=== PATIENT | male | born 1925 | race Caucasian/White ===

== ENCOUNTER 2016-09-05 02:48 | Inpatient (IN) | payer OTHER, MEDICARE ==
[2016-09-05 03:34] LABS: ALANINE AMINOTRANSFERASE 39 U/L (21-72); ALBUMIN 3.5 g/dL (3.5-5.0); ALKALINE PHOSPHATASE 48 U/L (38-126); ANION GAP 8 (5-19); ASPARTATE AMINO TRANSFERASE 23 U/L (17-59); BILIRUBIN,TOTAL 1.4 mg/dL (0.2-1.3); BLOOD UREA NITROGEN 21 mg/dL (7-20); CALCIUM 9.8 mg/dL (8.4-10.2); CARBON DIOXIDE 29 mmol/L (22-30); CHLORIDE 100 mmol/L (98-107); CREATININE RESULT 1.11 mg/dL (0.52-1.25); GLUCOSE 155 mg/dL (75-110); POTASSIUM 4.7 mmol/L (3.6-5.0); SODIUM 137.2 mmol/L (137-145); TOTAL PROTEIN 5.7 g/dL (6.3-8.2)
--- NOTE | 2016-09-05 03:47 | ER Document Report ---
ED General - General Time seen by provider: 03:42 Mode of Arrival: Medic Information source: Relative - spouse, Emergency Med Personnel TRAVEL OUTSIDE OF THE [place] IN LAST 30 DAYS: No - HPI Onset: Other - See history of present illness Onset/Duration: Gradual Associated symptoms: Chills, Productive cough, Fever <URIEL TITUS - Last Filed: 09/05/16 05:33> <SUJEY SALMERON - Last Filed: 09/05/16 05:42> - General Chief Complaint: Fever Stated Complaint: FEVER,CHILLS Notes: Patient is an 89-year-old male presents emergency department complaining of general malaise, chills and fever. Patient's spouse states the patient still dresses himself, and drives about 1 time per week. Patient woke up on 09/04/16 and states that he didn't feel good and that he didn't sleep well the night prior. Patient's spouse noted that the patient has been coughing more throughout the day. Patient had a fever of 103.4 F and a pulse ox of 84% on room air. EMS gave Tylenol for fever prior to arrival and patient's pulse ox increased to 95% with oxygen. Patient has a history of hypertension, dementia, COPD and is on oxygen at home, and a history of aspiration pneumonia (2015). Patient has no known allergies. (URIEL TITUS) - Related Data Allergies/Adverse Reactions: No Known Allergies Allergy (Verified 07/19/14 03:52) Past Medical History - General Information source: Patient - Social History Smoking Status: Former Smoker Cigarette use (# per day): No Chew tobacco use (# tins/day): No Frequency of alcohol use: None Drug Abuse: None Family History: None - Past Medical History Cardiac Medical History: Reports: Hx Heart Attack, Hx Hypertension Pulmonary Medical History: Reports: Hx Asthma, Hx COPD Psychiatric Medical History: Reports: Hx Dementia, Hx Depression - Immunizations Hx Pneumococcal Vaccination: 06/06/14 <URIEL TITUS - Last Filed: 09/05/16 05:33> Review of Systems - Review of Systems Constitutional: See HPI, Chills, Fever EENT: No symptoms reported Cardiovascular: No symptoms reported Respiratory: See HPI, Cough Gastrointestinal: No symptoms reported Genitourinary: No symptoms reported Male Genitourinary: No symptoms reported Musculoskeletal: No symptoms reported Skin: No symptoms reported Hematologic/Lymphatic: No symptoms reported Neurological/Psychological: No symptoms reported -: Yes All other systems reviewed and negative <URIEL TITUS - Last Filed: 09/05/16 05:33> Physical Exam - Vital signs Interpretation: Normal - General General appearance: Appears well, Alert In distress: Mild - HEENT Head: Normocephalic, Atraumatic Eyes: Normal Pupils: PERRL Hearing loss: Left, Right Mucous membranes: Normal - Respiratory Respiratory status: No respiratory distress Chest status: Nontender Breath sounds: Normal Chest palpation: Normal - Cardiovascular Rhythm: Regular Heart sounds: Normal auscultation - Abdominal Inspection: Normal Distension: No distension Bowel sounds: Normal Tenderness: Nontender Organomegaly: No organomegaly - Back Back: Normal, Nontender - Extremities General upper extremity: Normal inspection, Normal ROM, Normal strength General lower extremity: Normal inspection, Normal ROM, Normal strength. No: Edema - Neurological Neuro grossly intact: Yes Cognition: Normal Orientation: AAOx4 Dawn Coma Scale Eye Opening: Spontaneous Dawn Coma Scale Verbal: Oriented [place] Coma Scale Motor: Obeys Commands Dawn Coma Scale Total: 15 Speech: Normal - Psychological Associated symptoms: Normal affect, Normal mood - Skin Skin Temperature: Warm Skin Moisture: Dry Skin Color: Normal <URIEL TITUS - Last Filed: 09/05/16 05:33> Course - Laboratory Result Diagrams: 09/05/16 03:13 09/05/16 03:01 <URIEL TITUS - Last Filed: 09/05/16 05:33> - Laboratory Result Diagrams: 09/05/16 03:13 09/05/16 03:01 - Diagnostic Test Radiology reviewed: Image reviewed, Reports reviewed - Mild basilar atelectasis and scarring - EKG Interpretation by Ct EKG shows normal: Sinus rhythm, [place], Intervals, ST-T Waves. abnormal: QRS Complexes - Atypical right bundle branch block Rate: Normal Rhythm: NSR [place]/QRS: IVCD <SUJEY SALMERON - Last Filed: 09/05/16 05:42> - Vital Signs Vital signs: Temp Pulse Resp BP Pulse Ox 99.6 F 103 H 19 144/68 H 91 L 09/05/16 03:07 09/05/16 03:07 09/05/16 04:23 09/05/16 04:23 09/05/16 04:23 (URIEL TITUS) (SUJEY SALMERON) - Laboratory Laboratory results interpreted by me: 09/05/16 09/05/16 09/05/16 03:01 03:13 03:13 RBC 3.99 L Hgb 13.2 L RDW 14.2 H Seg Neutrophils % 82.2 H Lymphocytes % 9.1 L VBG pH 7.43 H BUN 21 H Glucose 155 H Total Bilirubin 1.4 H Total Protein 5.7 L Urine Protein Urine Ketones Urine Ascorbic Acid 09/05/16 04:24 RBC Hgb RDW Seg Neutrophils % Lymphocytes % VBG pH BUN Glucose Total Bilirubin Total Protein Urine Protein 30 H Urine Ketones TRACE H Urine Ascorbic Acid 40 H (SUJEY SALMERON) Discharge <URIEL TITUS - Last Filed: 09/05/16 05:33> - Discharge Admitting Provider: Hospitalist Unit Admitted: Telemetry <SUJEY SALMERON - Last Filed: 09/05/16 05:42> - Discharge Clinical Impression: Influenza Pneumonia Qualifiers: Pneumonia type: due to unspecified organism Laterality: unspecified laterality Lung location: lower lobe of lung Qualified Code(s): J18.1 - Lobar pneumonia, unspecified organism Fever Qualifiers: Fever type: unspecified Qualified Code(s): R50.9 - Fever, unspecified Condition: Stable Disposition: ADMITTED OBSERVATION Scribe Attestation: 09/05/16 05:42 I personally performed the services described in the documentation, reviewed and edited the documentation which was dictated to the scribe in my presence, and it accurately records my words and actions. (SUJEY SALMERON) Scribe Documentation - Scribe Written by Scribe:: Uriel Titus (09/05/16 04:10) acting as scribe for :: Winnie <URIEL TITUS - Last Filed: 09/05/16 05:33>
[2016-09-05 03:52] LABS: ABSOLUTE LYMPHOCYTES (AUTO) 0.7 10^3/uL (0.5-4.7); ABSOLUTE MONOCYTES (AUTO) 0.6 10^3/uL (0.1-1.4); ABSOLUTE NEUT (AUTO) 6.3 10^3/uL (1.7-8.2); BASOPHILS % (AUTO) 0.2 % (0-2); EOSINOPHILS % (AUTO) 0.3 % (0-6); HEMATOCRIT 38.2 % (37.9-51.0); HEMOGLOBIN 13.2 g/dL (13.5-17.0); HGB HCT DIFFERENCE 1.4; LYMPHOCYTES % (AUTO) 9.1 % (13-45); MEAN CORPUSCULAR HEMOGLOBIN 33.1 pg (27.0-33.4); MEAN CORPUSCULAR HGB CONC 34.6 g/dL (32.0-36.0); MEAN CORPUSCULAR VOLUME 96 fl (80-97); MONOCYTES % (AUTO) 8.2 % (3-13); RED BLOOD COUNT 3.99 10^6/uL (4.35-5.55); RED CELL DISTRIBUTION WIDTH 14.2 % (11.5-14.0); SEGMENTED NEUTROPHILS % (AUTO) 82.2 % (42-78); WHITE BLOOD COUNT 7.7 10^3/uL (4.0-10.5)
[2016-09-05 03:55] LABS: ADD ON TESTING BLD IN LAB ACKNOWLEDGE
[2016-09-05 03:57] LABS: PROTHROMBIN TIME 13.8 SEC (11.4-15.4)
[2016-09-05 04:02] LABS: VENOUS BLOOD BASE EXCESS 2.3 mmol/L; VENOUS BLOOD HCO3 26.9 mmol/L (20-32); VENOUS BLOOD PCO2 41.8 mmHg (35-63); VENOUS BLOOD PH 7.43 (7.30-7.42)
[2016-09-05 04:26] LABS: CREATINE KINASE 61 U/L (55-170)
[2016-09-05 05:04] LABS: APPEARANCE,URINE SLIGHTLY-CLOUDY; BILIRUBIN,URINE NEGATIVE (NEGATIVE); GLUCOSE, URINE NEGATIVE (NEGATIVE); KETONES,URINE TRACE mg/dL (NEGATIVE); LEUKOCYTE ESTERASE,URINE NEGATIVE (NEGATIVE); NITRITE,URINE NEGATIVE (NEGATIVE); PROTEIN,URINE 30 mg/dL (NEGATIVE); UROBILINOGEN,URINE NEGATIVE mg/dL (<2.0)
[2016-09-05 05:43] LABS: CREATINE KINASE MB 0.69 ng/mL (<4.55); TROPONIN I 0.012 ng/mL
[2016-09-05] MEDS ORDERED: ALBUTEROL SULFATE 4 MG PO PRN (06:21)
[2016-09-05] MEDS ORDERED: IPRATROPIUM/ALBUTEROL 0.5-2.5 MG/3 ML AMPUL NEB PRN (06:22)
--- NOTE | 2016-09-05 07:37 | PDOC H&P ---
History of Present Illness Admission Date/PCP: 09/05/16 06:22 Patient complains of: Shortness breath cough and temperature 100.3 History of Present Illness: HEIDY SHEPPARD is a 89 year old male with history of COPD chronic bronchitis home O2 dependence, recurrent aspiration pneumonia, chronic pain anxiety, dementia and profound deafness. In his usual state of health until approximately 24 hours of shortness of breath cough and fever. Patient is a poor historian and unable to provide significant history, subsequently obtained by the medical record. In the emergency room his found to have fever of 100.2 and nonproductive cough and rhonchi on the left side he started on empiric antibiotics and referred to the hospitalist for admission. Past Medical History Cardiac Medical History: Reports: Myocardial Infarction, Hypertension Pulmonary Medical History: Reports: Asthma, Bronchitis, Chronic Obstructive Pulmonary Disease (COPD), Pneumonia Psychiatric Medical History: Reports: Dementia, Depression Social History Information Source: [facility] Records Lives with: Family Smoking Status: Former Smoker Frequency of Alcohol Use: None Hx Recreational Drug Use: No Drugs: None Hx Prescription Drug Abuse: No - Advance Directive Resuscitation Status: Do Not Resuscitate Family History Family History: COPD Parental Family History Reviewed: Yes Children Family History Reviewed: Yes Sibling(s) Family History Reviewed.: Yes Medication/Allergy Home Medications: Diazepam 2 mg PO QHS PRN 07/19/14 Hydrocodone Bit/Acetaminophen [Hydrocodon-Acetaminophen 5-325] 1 each PO PRN Metoprolol Succinate 25 mg PO DAILY 07/19/14 Tamsulosin HCl 0.4 mg PO DAILY 07/19/14 Tiotropium [place] [Spiriva Handihaler 18 mcg/dose (30 Dose)] 1 cap IH DAILY Aspirin [Aspirin 325 mg Tablet] 325 mg PO DAILY #90 tablet 07/27/14 Diltiazem HCl [Cardizem Cd 120 mg Capsule] 120 mg PO DAILY #90 cap.sr.24h Famotidine [Pepcid 20 mg Tablet] 20 mg PO Q12 #60 tablet 07/27/14 Guaifenesin [Mucinex Sr 600 mg Tablet.sa] 600 mg PO Q6 #20 tablet.sa 07/27/14 Levofloxacin [Levaquin 750 mg Tablet] 750 mg PO DAILY #10 tab 07/27/14 Albuterol Sulfate [Proventil Sr 4 mg Tablet] 4 mg PO BID PRN 01/05/17 Aspirin 81 mg PO DAILY 09/05/16 Calcium Carbonate/Vitamin D3 [Calcium 600 + Vit D Tablet] 1 tab PO DAILY Meclizine HCl 25 mg PO BID 09/05/16 Multivitamin [Multivitamins] 1 cap PO DAILY 09/05/16 Allergies/Adverse Reactions: No Known Allergies Allergy (Verified 07/19/14 03:52) Review of Systems ROS unobtainable: Due to mental status Physical Exam Vital Signs: Temp Pulse Resp BP Pulse Ox 99.1 F 103 H 26 H 132/61 H 95 09/05/16 07:13 09/05/16 03:07 09/05/16 07:09 09/05/16 07:09 09/05/16 07:09 Intake & Output 09/03/16 09/04/16 09/05/16 11:59 11:59 11:59 Weight 75.75 kg General appearance: PRESENT: cooperative, mild distress Head exam: PRESENT: atraumatic, normocephalic Eye exam: PRESENT: conjunctiva pink, EOMI, PERRLA. ABSENT: scleral icterus Ear exam: PRESENT: normal external ear exam Mouth exam: PRESENT: dry mucosa Neck exam: ABSENT: carotid bruit, JVD, lymphadenopathy, thyromegaly Respiratory exam: PRESENT: accessory muscle use, crackles, prolonged expiratory phas, rhonchi, symmetrical, tachypnea. ABSENT: chest wall tenderness, clear to auscultation francisco javier Cardiovascular exam: PRESENT: RRR. ABSENT: diastolic murmur, rubs, systolic murmur Pulses: PRESENT: normal dorsalis pedis pul Vascular exam: PRESENT: normal capillary refill GI/Abdominal exam: PRESENT: normal bowel sounds, soft. ABSENT: distended, guarding, mass, organolmegaly, rebound, tenderness Rectal exam: PRESENT: deferred Extremities exam: PRESENT: full ROM. ABSENT: calf tenderness, clubbing, pedal edema Neurological exam: PRESENT: alert, awake, oriented to person, oriented to place , CN II-XII grossly intact. ABSENT: oriented to time, oriented to situation, motor sensory deficit Psychiatric exam: PRESENT: appropriate affect, normal mood. ABSENT: homicidal ideation, suicidal ideation Skin exam: PRESENT: dry, intact, warm. ABSENT: cyanosis, rash Results Impressions: Chest X-Ray 09/05/16 03:01 IMPRESSION: MILD BASILAR ATELECTASIS/ SCARRING. Assessment & Plan - Diagnosis (1) Aspiration pneumonia Qualifiers: Aspiration pneumonia type: due to regurgitated food Laterality: bilateral Lung location: lower lobe of lung Qualified Code(s): J69.0 - Pneumonitis due to inhalation of food and vomit Is this a current diagnosis for this admission?: YesPlan: Empiric antibiotics thickened liquids reevaluation of labs (2) COPD exacerbation Is this a current diagnosis for this admission?: YesPlan: Incentive spirometry with albuterol and Atrovent - Time Time Spent: 30 to 50 Minutes
--- NOTE | 2016-09-05 08:02 | EKG REPORT ---
SEVERITY:- ABNORMAL ECG - SINUS RHYTHM IVCD, CONSIDER ATYPICAL RBBB : Confirmed by: Kwasi Mendiola 05-Sep-2016 08:01:55
[2016-09-05] MEDS ORDERED: (PENDING PHARMACY ID) (Multivitamin [Multivitamins] 1 CAP) PO SCH (10:00)
--- NOTE | 2016-09-05 12:11 | PDOC PROGRESS REPORT ---
Subjective Progress Note for:: 09/05/16 Subjective:: Patient is seen on morning rounds. He is sleeping soundly in bed. He is extremely hard of hearing and difficult to arouse because of his inability to hear. He continues to have congested cough. He denies any dyspnea or chest pain. He denies any headache or dizziness. He denies any pain. His only complaint is that he is tired. Physical Exam Vital Signs: Temp Pulse Resp BP Pulse Ox 99.1 F 101 H 20 154/60 H 98 09/05/16 09:08 09/05/16 09:08 09/05/16 09:08 09/05/16 09:08 09/05/16 09:08 Intake & Output 09/04/16 09/05/16 09/06/16 06:59 06:59 06:59 Weight 75.75 kg General appearance: PRESENT: no acute distress, well-developed, well-nourished Head exam: PRESENT: atraumatic, normocephalic Eye exam: PRESENT: conjunctiva pink, EOMI, PERRLA. ABSENT: scleral icterus Ear exam: PRESENT: normal external ear exam Mouth exam: PRESENT: moist, tongue midline Neck exam: ABSENT: carotid bruit, JVD, lymphadenopathy, thyromegaly Respiratory exam: PRESENT: rhonchi - bilaterally, symmetrical, unlabored, wheezes Cardiovascular exam: PRESENT: RRR. ABSENT: diastolic murmur, rubs, systolic murmur Pulses: PRESENT: normal dorsalis pedis pul Vascular exam: PRESENT: normal capillary refill GI/Abdominal exam: PRESENT: normal bowel sounds, soft. ABSENT: distended, guarding, mass, organolmegaly, rebound, tenderness Rectal exam: PRESENT: deferred Extremities exam: PRESENT: full ROM. ABSENT: calf tenderness, clubbing, pedal edema Neurological exam: PRESENT: alert, awake, oriented to person, oriented to place , oriented to time, oriented to situation, CN II-XII grossly intact. ABSENT: motor sensory deficit Psychiatric exam: PRESENT: appropriate affect, normal mood. ABSENT: homicidal ideation, suicidal ideation Skin exam: PRESENT: dry, intact, warm. ABSENT: cyanosis, rash Results Impressions: Chest X-Ray 09/05/16 03:01 IMPRESSION: MILD BASILAR ATELECTASIS/ SCARRING. Assessment & Plan - Diagnosis (1) Pneumonia Qualifiers: Pneumonia type: aspiration pneumonia Laterality: unspecified laterality Lung location: lower lobe of lung Qualified Code(s): J18.1 - Lobar pneumonia, unspecified organism Is this a current diagnosis for this admission?: YesPlan: Continue antibiotics and nebulizer treatments/ (2) BPH (benign prostatic hyperplasia) Qualifiers: Prostatic enlargement morphology: unspecified morphology Lower urinary tract symptom presence: presence of symptoms unspecified Qualified Code(s): N40.0 - Benign prostatic hyperplasia without lower urinary tract symptoms (3) Chronic hypoxemic respiratory failure Is this a current diagnosis for this admission?: YesPlan: Continue nebulizers, oxygen and antibiotics (4) Constipation Qualifiers: Constipation type: slow transit constipation Qualified Code(s): K59.01 - Slow transit constipation Is this a current diagnosis for this admission?: YesPlan: Cathartics prn - Time Time Spent with patient: 25-34 minutes Critical Time spent with patient: 15-24 minutes Medications reviewed and adjusted accordingly: Yes Anticipated discharge: Acute Rehab
[2016-09-05] MEDS: TIOTROPIUM BROMIDE DPI 5 CAP/KIT (18 MCG/CAP) IH SCH (18:51)
[2016-09-05] MEDS: ASPIRIN 81 MG TABLET, CHEWABLE PO SCH (18:51)
[2016-09-05] MEDS: TAMSULOSIN HCL 0.4 MG CAP.SR.24H PO SCH (18:51)
[2016-09-05] MEDS: GUAIFENESIN 600 MG TABLET.SA PO SCH ×2 (18:51→22:55)
[2016-09-05] MEDS: MULTIVITAMIN TABLET PO SCH (18:51)
[2016-09-05] MEDS: HEPARIN SOD (PORCINE) 5,000 UNIT/ML 1 ML SYRINGE SUBCUT SCH ×2 (18:54→22:55)
[2016-09-05] MEDS: LEVOFLOXACIN 750 MG/D5W RTU 150 ML IV SCH (19:01)
[2016-09-06] MEDS: HEPARIN SOD (PORCINE) 5,000 UNIT/ML 1 ML SYRINGE SUBCUT SCH ×3 (06:27→21:55)
[2016-09-06 06:37] LABS: ABSOLUTE LYMPHOCYTES (AUTO) 0.7 10^3/uL (0.5-4.7); ABSOLUTE MONOCYTES (AUTO) 0.7 10^3/uL (0.1-1.4); BASOPHILS % (AUTO) 0.3 % (0-2); EOSINOPHILS % (AUTO) 0.5 % (0-6); HEMOGLOBIN 13.2 g/dL (13.5-17.0); HGB HCT DIFFERENCE 1.6; LYMPHOCYTES % (AUTO) 9.6 % (13-45); MEAN CORPUSCULAR HEMOGLOBIN 33.2 pg (27.0-33.4); MEAN CORPUSCULAR HGB CONC 34.6 g/dL (32.0-36.0); MEAN CORPUSCULAR VOLUME 96 fl (80-97); RED BLOOD COUNT 3.97 10^6/uL (4.35-5.55); RED CELL DISTRIBUTION WIDTH 13.9 % (11.5-14.0); SEGMENTED NEUTROPHILS % (AUTO) 80.6 % (42-78); WHITE BLOOD COUNT 7.4 10^3/uL (4.0-10.5)
[2016-09-06 07:03] LABS: ANION GAP 7 (5-19); BLOOD UREA NITROGEN 22 mg/dL (7-20); CALCIUM 9.5 mg/dL (8.4-10.2); CARBON DIOXIDE 30 mmol/L (22-30); CHLORIDE 99 mmol/L (98-107); CREATININE RESULT 0.88 mg/dL (0.52-1.25); GLUCOSE 98 mg/dL (75-110); POTASSIUM 4.3 mmol/L (3.6-5.0); SODIUM 136.1 mmol/L (137-145)
[2016-09-06] MEDS: TAMSULOSIN HCL 0.4 MG CAP.SR.24H PO SCH (12:19)
[2016-09-06] MEDS: LEVOFLOXACIN 750 MG/D5W RTU 150 ML IV SCH (12:19)
[2016-09-06] MEDS: GUAIFENESIN 600 MG TABLET.SA PO SCH ×2 (12:20→21:56)
[2016-09-06] MEDS: TIOTROPIUM BROMIDE DPI 5 CAP/KIT (18 MCG/CAP) IH SCH (12:20)
[2016-09-06] MEDS: ASPIRIN 81 MG TABLET, CHEWABLE PO SCH (12:20)
[2016-09-06] MEDS: MULTIVITAMIN TABLET PO SCH (12:20)
--- NOTE | 2016-09-06 15:13 | PDOC PROGRESS REPORT ---
Subjective Progress Note for:: 09/06/16 Subjective:: Patient is seen on morning rounds. He is sleeping soundly in bed. He is extremely hard of hearing and difficult to arouse because of his inability to hear. He continues to have congested cough. He denies any dyspnea or chest pain. He denies any headache or dizziness. He denies any pain. His only complaint is that he is tired. Physical Exam Vital Signs: Temp Pulse Resp BP Pulse Ox 99.0 F 97 16 126/45 H 97 09/06/16 07:36 09/06/16 11:26 09/06/16 11:26 09/06/16 07:36 09/06/16 11:26 Intake & Output 09/05/16 09/06/16 09/07/16 06:59 06:59 06:59 Intake Total 740 650 Output Total 600 Balance 740 50 Weight 75.7 kg General appearance: PRESENT: no acute distress - extremely hard of hearing almost deaf, well-developed, well-nourished Head exam: PRESENT: atraumatic Eye exam: PRESENT: conjunctiva pink, EOMI, PERRLA. ABSENT: scleral icterus Ear exam: PRESENT: normal external ear exam Mouth exam: PRESENT: moist, tongue midline Neck exam: ABSENT: carotid bruit, JVD, lymphadenopathy, thyromegaly Respiratory exam: PRESENT: decreased breath sounds, rhonchi, symmetrical, unlabored, wheezes. ABSENT: rales Cardiovascular exam: PRESENT: RRR. ABSENT: diastolic murmur, rubs, systolic murmur Pulses: PRESENT: normal dorsalis pedis pul Vascular exam: PRESENT: normal capillary refill GI/Abdominal exam: PRESENT: normal bowel sounds, soft. ABSENT: distended, guarding, mass, organolmegaly, rebound, tenderness Rectal exam: PRESENT: deferred Extremities exam: PRESENT: full ROM. ABSENT: calf tenderness, clubbing, pedal edema Neurological exam: PRESENT: alert, awake, oriented to person, oriented to place , oriented to time, oriented to situation, CN II-XII grossly intact. ABSENT: motor sensory deficit Psychiatric exam: PRESENT: appropriate affect, normal mood. ABSENT: homicidal ideation, suicidal ideation Skin exam: PRESENT: dry, intact, warm. ABSENT: cyanosis, rash Results Laboratory Results: 09/06/16 06:10 09/06/16 06:10 09/06/16 09/06/16 06:10 06:10 WBC 7.4 RBC 3.97 L Hgb 13.2 L Hct 38.0 MCV 96 MCH 33.2 MCHC 34.6 RDW 13.9 Plt Count 154 Seg Neutrophils % 80.6 H Lymphocytes % 9.6 L Monocytes % 9.0 Eosinophils % 0.5 Basophils % 0.3 Absolute Neutrophils 6.0 Absolute Lymphocytes 0.7 Absolute Monocytes 0.7 Absolute Eosinophils 0.0 Absolute Basophils 0.0 Sodium 136.1 L Potassium 4.3 Chloride 99 Carbon Dioxide 30 Anion Gap 7 BUN 22 H Creatinine 0.88 Est GFR ( Amer) > 60 Est GFR (Non-Af Amer) > 60 Glucose 98 Calcium 9.5 Impressions: Chest X-Ray 09/05/16 03:01 IMPRESSION: MILD BASILAR ATELECTASIS/ SCARRING. Assessment & Plan - Diagnosis (1) Pneumonia Qualifiers: Pneumonia type: aspiration pneumonia Laterality: unspecified laterality Lung location: lower lobe of lung Qualified Code(s): J18.1 - Lobar pneumonia, unspecified organism Is this a current diagnosis for this admission?: YesPlan: Continue antibiotics and nebulizer treatments. Cultures pending (2) BPH (benign prostatic hyperplasia) Qualifiers: Prostatic enlargement morphology: unspecified morphology Lower urinary tract symptom presence: presence of symptoms unspecified Qualified Code(s): N40.0 - Benign prostatic hyperplasia without lower urinary tract symptoms Plan: Continue flomax (3) Chronic hypoxemic respiratory failure Is this a current diagnosis for this admission?: YesPlan: Continue nebulizers, oxygen and antibiotics (4) Constipation Qualifiers: Constipation type: slow transit constipation Qualified Code(s): K59.01 - Slow transit constipation Is this a current diagnosis for this admission?: YesPlan: Cathartics prn - Time Time Spent with patient: 25-34 minutes Critical Time spent with patient: 25-34 minutes Medications reviewed and adjusted accordingly: Yes Anticipated discharge: Acute Rehab
[2016-09-06] MEDS ORDERED: FLUTICASONE NASAL SPRAY 50 MCG/SPRY 120 SPRAY/16 GM NASL ONE (23:45)
[2016-09-06] MEDS ORDERED: DIAZEPAM 2 MG TABLET PO ONE (23:45)
[2016-09-07] MEDS ORDERED: FLUTICASONE NASAL SPRAY 50 MCG/SPRY 120 SPRAY/16 GM ONE (00:17)
[2016-09-07] MEDS: HEPARIN SOD (PORCINE) 5,000 UNIT/ML 1 ML SYRINGE SUBCUT SCH ×3 (06:14→22:08)
[2016-09-07] MEDS: LEVOFLOXACIN 750 MG/D5W RTU 150 ML IV SCH (11:05)
[2016-09-07] MEDS: ASPIRIN 81 MG TABLET, CHEWABLE PO SCH (11:06)
[2016-09-07] MEDS: MULTIVITAMIN TABLET PO SCH (11:06)
[2016-09-07] MEDS: GUAIFENESIN 600 MG TABLET.SA PO SCH ×2 (11:06→22:29)
[2016-09-07] MEDS: TAMSULOSIN HCL 0.4 MG CAP.SR.24H PO SCH (11:06)
[2016-09-07] MEDS: TIOTROPIUM BROMIDE DPI 5 CAP/KIT (18 MCG/CAP) IH SCH (11:07)
[2016-09-07] MEDS: FLUTICASONE NASAL SPRAY 50 MCG/SPRY 120 SPRAY/16 GM NASL SCH ×2 (11:07→22:29)
--- NOTE | 2016-09-07 12:30 | PDOC PROGRESS REPORT ---
Subjective Progress Note for:: 09/07/16 Subjective:: Patient is seen on morning rounds. He is sleeping soundly in bed. He is extremely hard of hearing and difficult to arouse because of his inability to hear. He continues to have congested cough. He denies any dyspnea or chest pain. He denies any headache or dizziness. He denies any pain. His only complaint is that he is tired. Physical Exam Vital Signs: Temp Pulse Resp BP Pulse Ox 98.1 F 117 H 21 H 145/65 H 94 09/07/16 11:32 09/07/16 11:32 09/07/16 11:32 09/07/16 11:32 09/07/16 11:32 Intake & Output 09/06/16 09/07/16 09/08/16 06:59 06:59 06:59 Intake Total 740 1371 Output Total 800 Balance 740 571 Weight 75.7 kg 75 kg General appearance: PRESENT: no acute distress, well-developed, well-nourished Head exam: PRESENT: atraumatic, normocephalic Eye exam: PRESENT: conjunctiva pink, EOMI, PERRLA. ABSENT: scleral icterus Ear exam: PRESENT: normal external ear exam Mouth exam: PRESENT: moist, tongue midline Neck exam: ABSENT: carotid bruit, JVD, lymphadenopathy, thyromegaly Respiratory exam: PRESENT: rhonchi, symmetrical, unlabored, wheezes - bilaterally Cardiovascular exam: PRESENT: RRR. ABSENT: diastolic murmur, rubs, systolic murmur Pulses: PRESENT: normal dorsalis pedis pul Vascular exam: PRESENT: normal capillary refill GI/Abdominal exam: PRESENT: normal bowel sounds, soft. ABSENT: distended, guarding, mass, organolmegaly, rebound, tenderness Rectal exam: PRESENT: deferred Extremities exam: PRESENT: full ROM. ABSENT: calf tenderness, clubbing, pedal edema Neurological exam: PRESENT: alert, awake, oriented to person, oriented to place , oriented to time, oriented to situation, CN II-XII grossly intact. ABSENT: motor sensory deficit Skin exam: PRESENT: dry, intact, warm. ABSENT: cyanosis, rash Results Laboratory Results: 09/06/16 06:10 09/06/16 06:10 Impressions: Chest X-Ray 09/05/16 03:01 IMPRESSION: MILD BASILAR ATELECTASIS/ SCARRING. Assessment & Plan - Diagnosis (1) Pneumonia Qualifiers: Pneumonia type: aspiration pneumonia Laterality: unspecified laterality Lung location: lower lobe of lung Qualified Code(s): J18.1 - Lobar pneumonia, unspecified organism Is this a current diagnosis for this admission?: YesPlan: Continue antibiotics and nebulizer treatments. Cultures pending (2) BPH (benign prostatic hyperplasia) Qualifiers: Prostatic enlargement morphology: unspecified morphology Lower urinary tract symptom presence: presence of symptoms unspecified Qualified Code(s): N40.0 - Benign prostatic hyperplasia without lower urinary tract symptoms Plan: Continue flomax (3) Chronic hypoxemic respiratory failure Is this a current diagnosis for this admission?: YesPlan: Continue nebulizers, oxygen and antibiotics (4) Constipation Qualifiers: Constipation type: slow transit constipation Qualified Code(s): K59.01 - Slow transit constipation Is this a current diagnosis for this admission?: YesPlan: Cathartics prn (5) Dysphagia Qualifiers: Dysphagia type: pharyngeal phase Qualified Code(s): R13.13 - Dysphagia , pharyngeal phase Is this a current diagnosis for this admission?: YesPlan: Possible aspiration pneumonia. Patient refused speech therapy consult - Time Time Spent with patient: 25-34 minutes Critical Time spent with patient: 15-24 minutes Medications reviewed and adjusted accordingly: Yes Anticipated discharge: Acute Rehab
[2016-09-07] MEDS: ACETAMINOPHEN 325 MG TABLET PO PRN ×2 (16:55→23:58)
[2016-09-07] MEDS: DIAZEPAM 2 MG TABLET PO SCH (22:09)
[2016-09-08] MEDS: HEPARIN SOD (PORCINE) 5,000 UNIT/ML 1 ML SYRINGE SUBCUT SCH ×3 (05:57→22:50)
[2016-09-08] MEDS ORDERED: HYDROCODONE/ACETAMINOPHEN 5-325 MG TABLET PO PRN (10:15)
[2016-09-08] MEDS: LEVOFLOXACIN 750 MG/D5W RTU 150 ML IV SCH (11:08)
[2016-09-08] MEDS: TAMSULOSIN HCL 0.4 MG CAP.SR.24H PO SCH (11:09)
[2016-09-08] MEDS: MULTIVITAMIN TABLET PO SCH (11:09)
[2016-09-08] MEDS: ASPIRIN 81 MG TABLET, CHEWABLE PO SCH (11:09)
[2016-09-08] MEDS: GUAIFENESIN 600 MG TABLET.SA PO SCH ×2 (11:09→22:51)
[2016-09-08] MEDS: FLUTICASONE NASAL SPRAY 50 MCG/SPRY 120 SPRAY/16 GM NASL SCH ×2 (11:10→22:51)
[2016-09-08] MEDS: TIOTROPIUM BROMIDE DPI 5 CAP/KIT (18 MCG/CAP) IH SCH (11:10)
[2016-09-08] MEDS ORDERED: CAPSAICIN 0.025% CREAM 60 GM TP PRN (14:55)
[2016-09-08] MEDS: BENZONATATE 100 MG CAPSULE PO SCH ×2 (15:10→22:50)
[2016-09-08] MEDS: ACYCLOVIR 5% OINTMENT 15 GM TP SCH ×3 (15:11→22:50)
--- NOTE | 2016-09-08 16:50 | PDOC PROGRESS REPORT ---
Subjective Progress Note for:: 09/08/16 Subjective:: Patient is seen on morning rounds. He is awake and alert and resting in bed. He is extremely hard of hearing. We communicate through his note pad in writing. He knows he has dementia and it takes him a long time to gather his thoughts. He wants to be able to take his own medications as he does at home and have his give it to him. He continues to have congested cough. He denies any dyspnea or chest pain. He denies any headache or dizziness. He denies any pain. His only complaint is that he is tired. Physical Exam Vital Signs: Temp Pulse Resp BP Pulse Ox 98.3 F 91 20 114/55 L 99 09/08/16 15:23 09/08/16 15:23 09/08/16 15:23 09/08/16 15:23 09/08/16 15:23 Intake & Output 09/07/16 09/08/16 09/09/16 06:59 06:59 06:59 Intake Total 1371 1045 1200 Output Total 800 1725 400 Balance 571 -680 800 Weight 75 kg 75 kg General appearance: PRESENT: no acute distress, thin, well-developed, well- nourished Head exam: PRESENT: atraumatic, normocephalic Eye exam: PRESENT: conjunctiva pink, EOMI, PERRLA. ABSENT: scleral icterus Ear exam: PRESENT: normal external ear exam Mouth exam: PRESENT: moist, tongue midline Neck exam: ABSENT: carotid bruit, JVD, lymphadenopathy, thyromegaly Respiratory exam: PRESENT: decreased breath sounds, rhonchi, symmetrical, wheezes Cardiovascular exam: PRESENT: RRR. ABSENT: diastolic murmur, rubs, systolic murmur Pulses: PRESENT: normal dorsalis pedis pul Vascular exam: PRESENT: normal capillary refill GI/Abdominal exam: PRESENT: normal bowel sounds, soft. ABSENT: distended, guarding, mass, organolmegaly, rebound, tenderness Rectal exam: PRESENT: deferred Extremities exam: PRESENT: full ROM. ABSENT: calf tenderness, clubbing, pedal edema Neurological exam: PRESENT: alert, awake, oriented to person, oriented to place , oriented to time, oriented to situation, CN II-XII grossly intact. ABSENT: motor sensory deficit Psychiatric exam: PRESENT: appropriate affect, normal mood. ABSENT: homicidal ideation, suicidal ideation Skin exam: PRESENT: dry, intact, warm. ABSENT: cyanosis, rash Results Laboratory Results: 09/06/16 06:10 09/06/16 06:10 Impressions: Chest X-Ray 09/05/16 03:01 IMPRESSION: MILD BASILAR ATELECTASIS/ SCARRING. Assessment & Plan - Diagnosis (1) Pneumonia Qualifiers: Pneumonia type: aspiration pneumonia Laterality: unspecified laterality Lung location: lower lobe of lung Qualified Code(s): J18.1 - Lobar pneumonia, unspecified organism Is this a current diagnosis for this admission?: YesPlan: Continue antibiotics and nebulizer treatments. Cultures pending (2) BPH (benign prostatic hyperplasia) Qualifiers: Prostatic enlargement morphology: unspecified morphology Lower urinary tract symptom presence: presence of symptoms unspecified Qualified Code(s): N40.0 - Benign prostatic hyperplasia without lower urinary tract symptoms Plan: Continue flomax (3) Chronic hypoxemic respiratory failure Is this a current diagnosis for this admission?: YesPlan: Continue nebulizers, oxygen and antibiotics (4) Constipation Qualifiers: Constipation type: slow transit constipation Qualified Code(s): K59.01 - Slow transit constipation Is this a current diagnosis for this admission?: YesPlan: Cathartics prn (5) Dysphagia Qualifiers: Dysphagia type: pharyngeal phase Qualified Code(s): R13.13 - Dysphagia , pharyngeal phase Is this a current diagnosis for this admission?: YesPlan: Possible aspiration pneumonia. Patient refused speech therapy consult - Time Time Spent with patient: 25-34 minutes Critical Time spent with patient: 15-24 minutes Medications reviewed and adjusted accordingly: Yes Anticipated discharge: Acute Rehab
[2016-09-08] MEDS: MECLIZINE HCL 25 MG TABLET PO SCH (18:03)
[2016-09-08] MEDS ORDERED: DIAZEPAM 2 MG TABLET PO SCH (22:00)
[2016-09-08] MEDS: DIAZEPAM 2 MG TABLET PO SCH (22:50)
[2016-09-09] MEDS: HEPARIN SOD (PORCINE) 5,000 UNIT/ML 1 ML SYRINGE SUBCUT SCH ×3 (06:25→21:11)
[2016-09-09] MEDS: BENZONATATE 100 MG CAPSULE PO SCH ×3 (06:25→21:10)
[2016-09-09] MEDS: HYDROCODONE/ACETAMINOPHEN 5-325 MG TABLET PO PRN ×3 (06:31→20:31)
[2016-09-09] MEDS: DIAZEPAM 2 MG TABLET PO PRN ×2 (06:31→20:31)
[2016-09-09] MEDS ORDERED: LEVOFLOXACIN 750 MG TABLET PO ONE (11:00)
[2016-09-09] MEDS: MULTIVITAMIN TABLET PO SCH (11:18)
[2016-09-09] MEDS: GUAIFENESIN 600 MG TABLET.SA PO SCH ×2 (11:21→21:01)
[2016-09-09] MEDS: ASPIRIN 81 MG TABLET, CHEWABLE PO SCH (11:22)
[2016-09-09] MEDS: MECLIZINE HCL 25 MG TABLET PO SCH ×2 (11:23→18:36)
[2016-09-09] MEDS: ACYCLOVIR 5% OINTMENT 15 GM TP SCH ×4 (11:24→21:01)
[2016-09-09] MEDS: TIOTROPIUM BROMIDE DPI 5 CAP/KIT (18 MCG/CAP) IH SCH (11:25)
[2016-09-09] MEDS: TAMSULOSIN HCL 0.4 MG CAP.SR.24H PO SCH (11:46)
[2016-09-09] MEDS: FLUTICASONE NASAL SPRAY 50 MCG/SPRY 120 SPRAY/16 GM NASL SCH ×2 (11:47→21:01)
--- NOTE | 2016-09-09 15:10 | PDOC PROGRESS REPORT ---
Subjective Progress Note for:: 09/09/16 Subjective:: Patient is seen on morning rounds. He is awake and alert and resting in bed. He is extremely hard of hearing. We communicate through his note pad in writing. He knows he has dementia and it takes him a long time to gather his thoughts. He wants to be able to take his own medications as he does at home and have his give it to him. He continues to have congested cough. He denies any dyspnea or chest pain. He denies any headache or dizziness. He denies any pain. His only complaint is that he is tired, but he did sleep much better overnight. Physical Exam Vital Signs: Temp Pulse Resp BP Pulse Ox 98.1 F 95 20 115/54 L 99 09/09/16 11:06 09/09/16 11:06 09/09/16 11:06 09/09/16 11:06 09/09/16 11:06 Intake & Output 09/08/16 09/09/16 09/10/16 06:59 06:59 06:59 Intake Total 1045 1560 Output Total 1725 1000 Balance -680 560 Weight 75 kg General appearance: PRESENT: no acute distress, well-developed, well-nourished Head exam: PRESENT: atraumatic, normocephalic Eye exam: PRESENT: conjunctiva pink, EOMI, PERRLA. ABSENT: scleral icterus Ear exam: PRESENT: normal external ear exam Mouth exam: PRESENT: moist, tongue midline Neck exam: ABSENT: carotid bruit, JVD, lymphadenopathy, thyromegaly Respiratory exam: PRESENT: clear to auscultation francisco javier. ABSENT: rales, rhonchi, wheezes Cardiovascular exam: PRESENT: RRR. ABSENT: diastolic murmur, rubs, systolic murmur Pulses: PRESENT: normal dorsalis pedis pul Vascular exam: PRESENT: normal capillary refill GI/Abdominal exam: PRESENT: normal bowel sounds, soft. ABSENT: distended, guarding, mass, organolmegaly, rebound, tenderness Rectal exam: PRESENT: deferred Extremities exam: PRESENT: full ROM. ABSENT: calf tenderness, clubbing, pedal edema Musculoskeletal exam: PRESENT: ambulatory Neurological exam: PRESENT: alert, altered, awake, oriented to person, oriented to place - most of the time, he is aware of where he is Psychiatric exam: PRESENT: appropriate affect, normal mood. ABSENT: homicidal ideation, suicidal ideation Skin exam: PRESENT: dry, intact, warm, other - multiple echymotic areas of arms from blood draws. ABSENT: cyanosis, rash Results Laboratory Results: 09/06/16 06:10 09/06/16 06:10 Impressions: Chest X-Ray 09/05/16 03:01 IMPRESSION: MILD BASILAR ATELECTASIS/ SCARRING. Assessment & Plan - Diagnosis (1) Pneumonia Qualifiers: Pneumonia type: aspiration pneumonia Laterality: unspecified laterality Lung location: lower lobe of lung Qualified Code(s): J18.1 - Lobar pneumonia, unspecified organism Is this a current diagnosis for this admission?: YesPlan: Continue antibiotics and nebulizer treatments. He is back to baseline and ready for discharge to rehab Patient wants to go home but is unable to care for him 24hrs a day. He does wear oxygen at 2l/min n/c continously at home. (2) BPH (benign prostatic hyperplasia) Qualifiers: Prostatic enlargement morphology: unspecified morphology Lower urinary tract symptom presence: presence of symptoms unspecified Qualified Code(s): N40.0 - Benign prostatic hyperplasia without lower urinary tract symptoms Plan: Continue flomax (3) Chronic hypoxemic respiratory failure Is this a current diagnosis for this admission?: YesPlan: Continue nebulizers, oxygen and antibiotics (4) Constipation Qualifiers: Constipation type: slow transit constipation Qualified Code(s): K59.01 - Slow transit constipation Is this a current diagnosis for this admission?: YesPlan: Cathartics prn (5) Dysphagia Qualifiers: Dysphagia type: pharyngeal phase Qualified Code(s): R13.13 - Dysphagia , pharyngeal phase Is this a current diagnosis for this admission?: YesPlan: Patient has had previous admissions for aspiration pneumonia. He has been evaluated by speech therapy and recommended to be on chopped meats and thickened liquids - Time Time Spent with patient: 35 or more minutes Critical Time spent with patient: 25-34 minutes Medications reviewed and adjusted accordingly: Yes Anticipated discharge: Acute Rehab Within: when bed available
[2016-09-09] MEDS: DIAZEPAM 2 MG TABLET PO SCH (21:14)
[2016-09-10] MEDS: BENZONATATE 100 MG CAPSULE PO SCH ×3 (06:32→21:33)
[2016-09-10] MEDS: HEPARIN SOD (PORCINE) 5,000 UNIT/ML 1 ML SYRINGE SUBCUT SCH ×3 (06:33→21:36)
[2016-09-10] MEDS: DIAZEPAM 2 MG TABLET PO PRN (08:23)
[2016-09-10] MEDS: HYDROCODONE/ACETAMINOPHEN 5-325 MG TABLET PO PRN ×4 (08:23→21:33)
[2016-09-10] MEDS: GUAIFENESIN 600 MG TABLET.SA PO SCH ×3 (10:07→23:43)
[2016-09-10] MEDS: ASPIRIN 81 MG TABLET, CHEWABLE PO SCH (10:07)
[2016-09-10] MEDS: LEVOFLOXACIN 750 MG TABLET PO SCH (10:09)
[2016-09-10] MEDS: MULTIVITAMIN TABLET PO SCH (10:09)
[2016-09-10] MEDS: TIOTROPIUM BROMIDE DPI 5 CAP/KIT (18 MCG/CAP) IH SCH (10:09)
[2016-09-10] MEDS: TAMSULOSIN HCL 0.4 MG CAP.SR.24H PO SCH (10:09)
[2016-09-10] MEDS: MECLIZINE HCL 25 MG TABLET PO SCH ×2 (10:09→18:10)
[2016-09-10] MEDS: FLUTICASONE NASAL SPRAY 50 MCG/SPRY 120 SPRAY/16 GM NASL SCH ×3 (10:09→23:43)
[2016-09-10] MEDS: ACYCLOVIR 5% OINTMENT 15 GM TP SCH ×5 (10:09→23:44)
--- NOTE | 2016-09-10 15:35 | PDOC PROGRESS REPORT ---
Subjective Progress Note for:: 09/10/16 Subjective:: The patient was seen earlier today on rounds. The patient is very hard of hearing which can make communication difficult. I communicated with the patient with a pad and pen. The patient denies any nausea, vomiting, diarrhea, shortness of breath, dizziness, chest pain, heart palpitations, fevers, or chills. The patient is obsessive-compulsive and is concerned about the timing of his medications. I once again went over this in detail with the patient and attempt to ease his anxiety around his medication administration windows. I spoke with the patient's regarding this and she also attempted to comfort the patient. The patient has remained afebrile. Blood pressures have been in a good range. When prompted the patient voices no other concerns at this time. Review of systems: The rest of the review of systems is negative. Physical Exam Vital Signs: Temp Pulse Resp BP Pulse Ox 97.8 F 90 16 125/61 98 09/10/16 11:37 09/10/16 11:37 09/10/16 11:37 09/10/16 11:37 09/10/16 11:37 Intake & Output 09/08/16 09/09/16 09/10/16 23:59 23:59 23:59 Intake Total 1530 2113 0 Output Total 750 1020 0 Balance 780 1093 0 Weight 75 kg 76.3 kg General appearance: PRESENT: no acute distress, cooperative, hard of hearing, well-developed, well-nourished Head exam: PRESENT: atraumatic, normocephalic Eye exam: PRESENT: conjunctiva pink, EOMI, PERRLA. ABSENT: scleral icterus Ear exam: PRESENT: normal external ear exam Mouth exam: PRESENT: moist, tongue midline Neck exam: ABSENT: carotid bruit, JVD, lymphadenopathy, thyromegaly Respiratory exam: PRESENT: clear to auscultation francisco javier. ABSENT: rales, rhonchi, wheezes Cardiovascular exam: PRESENT: RRR. ABSENT: diastolic murmur, rubs, systolic murmur Pulses: PRESENT: normal dorsalis pedis pul Vascular exam: PRESENT: normal capillary refill GI/Abdominal exam: PRESENT: normal bowel sounds, soft. ABSENT: distended, guarding, mass, organolmegaly, rebound, tenderness Rectal exam: PRESENT: deferred Extremities exam: PRESENT: full ROM. ABSENT: calf tenderness, clubbing, pedal edema Neurological exam: PRESENT: alert, awake, oriented to person, oriented to place , oriented to time, oriented to situation, CN II-XII grossly intact. ABSENT: motor sensory deficit Psychiatric exam: PRESENT: appropriate affect, normal mood. ABSENT: homicidal ideation, suicidal ideation Skin exam: PRESENT: dry, intact, warm. ABSENT: cyanosis, rash Results Laboratory Results: 09/06/16 06:10 09/06/16 06:10 Impressions: Chest X-Ray 09/05/16 03:01 IMPRESSION: MILD BASILAR ATELECTASIS/ SCARRING. Assessment & Plan - Diagnosis (1) Aspiration pneumonia Qualifiers: Aspiration pneumonia type: due to regurgitated food Laterality: bilateral Lung location: lower lobe of lung Qualified Code(s): J69.0 - Pneumonitis due to inhalation of food and vomit Is this a current diagnosis for this admission?: Yes (2) SIRS (systemic inflammatory response syndrome) Is this a current diagnosis for this admission?: Yes (3) Acute encephalopathy Is this a current diagnosis for this admission?: Yes (4) Atrial fibrillation Qualifiers: Atrial fibrillation type: paroxysmal Qualified Code(s): I48.0 - Paroxysmal atrial fibrillation Is this a current diagnosis for this admission?: Yes (5) BPH (benign prostatic hyperplasia) Qualifiers: Prostatic enlargement morphology: unspecified morphology Lower urinary tract symptom presence: presence of symptoms unspecified Qualified Code(s): N40.0 - Benign prostatic hyperplasia without lower urinary tract symptoms (6) COPD exacerbation Is this a current diagnosis for this admission?: Yes (7) Chronic hypoxemic respiratory failure Is this a current diagnosis for this admission?: Yes (8) Chronic obstructive lung disease Qualifiers: COPD type: COPD with acute lower respiratory infection Qualified Code(s ): J44.0 - Chronic obstructive pulmonary disease with acute lower respiratory infection Is this a current diagnosis for this admission?: Yes (9) Constipation Qualifiers: Constipation type: slow transit constipation Qualified Code(s): K59.01 - Slow transit constipation Is this a current diagnosis for this admission?: Yes (10) Deaf Qualifiers: Laterality: bilateral Qualified Code(s): H91.93 - Unspecified hearing loss, bilateral Is this a current diagnosis for this admission?: Yes (11) Dysphagia Qualifiers: Dysphagia type: pharyngeal phase Qualified Code(s): R13.13 - Dysphagia , pharyngeal phase Is this a current diagnosis for this admission?: Yes (12) Opiate dependence Qualifiers: Substance use status: uncomplicated Qualified Code(s): F11.20 - Opioid dependence, uncomplicated Is this a current diagnosis for this admission?: Yes - Time Time Spent with patient: 25-34 minutes Medications reviewed and adjusted accordingly: Yes Anticipated discharge: SNF Within: within 24 hours, when bed available
[2016-09-10] MEDS: DIAZEPAM 2 MG TABLET PO SCH (21:33)
[2016-09-11] MEDS: HYDROCODONE/ACETAMINOPHEN 5-325 MG TABLET PO PRN ×3 (03:42→17:57)
[2016-09-11] MEDS: BENZONATATE 100 MG CAPSULE PO SCH ×2 (06:55→14:13)
[2016-09-11] MEDS: HEPARIN SOD (PORCINE) 5,000 UNIT/ML 1 ML SYRINGE SUBCUT SCH ×2 (06:55→14:13)
--- NOTE | 2016-09-11 09:07 | PDOC TRANSFER SUMMARY ---
General - Admit/Disc Date/PCP Admission Date/Primary Care Provider: 09/05/16 06:22 Dr. Shetty, [place] Discharge Date: 09/11/16 - Discharge Diagnosis (1) Aspiration pneumonia Is this a current diagnosis for this admission?: Yes (2) SIRS (systemic inflammatory response syndrome) Is this a current diagnosis for this admission?: Yes (3) COPD exacerbation Is this a current diagnosis for this admission?: Yes (4) Acute on chronic respiratory failure with hypoxemia Is this a current diagnosis for this admission?: Yes (5) Acute encephalopathy Is this a current diagnosis for this admission?: Yes (6) Atrial fibrillation Is this a current diagnosis for this admission?: Yes (7) BPH (benign prostatic hyperplasia) Is this a current diagnosis for this admission?: Yes (8) Constipation Is this a current diagnosis for this admission?: Yes (9) Deaf Is this a current diagnosis for this admission?: Yes (10) Dysphagia Is this a current diagnosis for this admission?: Yes (11) Opiate dependence Is this a current diagnosis for this admission?: Yes - Additional Information Resuscitation Status: Do Not Resuscitate Discharge Diet: Regular - Chopped meats and thickened liquids Discharge Activity: Activity As Tolerated Home Medications: Diazepam 2 mg PO QHS PRN 07/19/14 Metoprolol Succinate 25 mg PO DAILY 07/19/14 Tiotropium Oracle [Spiriva Handihaler 18 mcg/dose (30 Dose)] 1 cap IH DAILY Aspirin [Aspirin 325 mg Tablet] 325 mg PO DAILY #90 tablet 07/27/14 Diltiazem HCl [Cardizem Cd 120 mg Capsule] 120 mg PO DAILY #90 cap.sr.24h Famotidine [Pepcid 20 mg Tablet] 20 mg PO Q12 #60 tablet 07/27/14 Guaifenesin [Mucinex Sr 600 mg Tablet.sa] 600 mg PO Q6 #20 tablet.sa 07/27/14 Levofloxacin [Levaquin 750 mg Tablet] 750 mg PO DAILY #10 tab 07/27/14 Albuterol Sulfate [Proventil SR 4 mg Tablet] 4 mg PO BID PRN 09/05/16 Aspirin 81 mg PO DAILY 09/05/16 Calcium Carbonate/Vitamin D3 [Calcium 600 + Vit D Tablet] 1 tab PO DAILY Iron Amino Acid Chelate/B12/FA [Ferractiv Iron 27 mg Formula] 1 tab PO DAILY 01/15 Meclizine HCl 25 mg PO BID 09/05/16 Multivitamin [Multivitamins] 1 cap PO DAILY 09/05/16 Levofloxacin [Levaquin 750 mg Tablet] 750 mg PO DAILY #8 tablet 09/11/16 History of Present Illness Admission Date/PCP: 09/05/16 06:22 Dr. Shetty Patient complains of: Fever and shortness of breath History of Present Illness: HEIDY SHEPPARD is a 89 year old male with a past medical history of COPD chronic bronchitis home O2 dependence, recurrent aspiration pneumonia, chronic pain anxiety, dementia and profound deafness. In his usual state of health until approximately 24 hours of shortness of breath cough and fever. Patient is a poor historian and unable to provide significant history, subsequently obtained by the medical record. In the emergency room patient was found to have fever of 100.2 and nonproductive cough and rhonchi on the left side he started on empiric antibiotics and referred to the hospitalist for admission. Hospital Course Hospital Course: The patient was admitted to continuous telemetry unit. Patient has had previous admissions for aspiration pneumonia. He has been evaluated by speech therapy and recommended to be on chopped meats and thickened liquids The patient communicated through a note pad given that he is severely hard of hearing. It is also to be noted that the patient is obsessive compulsive and worries constantly about the timing of his medications. The patient was placed on antibiotic(s), nebulizers, expectorants, supplemental O2, incentive spirometry and flutter valve. Sputum culture was obtained. The patient was weaned to home O2 settings and symptoms overall improved. Physical Exam Vital Signs: Temp Pulse Resp BP Pulse Ox 97.7 F 85 18 117/51 L 97 09/11/16 03:37 09/11/16 07:00 09/11/16 03:37 09/11/16 03:37 09/11/16 03:37 Intake & Output 09/09/16 09/10/16 09/11/16 23:59 23:59 23:59 Intake Total 2113 1103 260 Output Total 1020 0 Balance 1093 1103 260 Weight 76.3 kg 76.5 kg General appearance: PRESENT: no acute distress, cooperative, hard of hearing, well-developed, well-nourished Head exam: PRESENT: atraumatic, normocephalic Eye exam: PRESENT: conjunctiva pink, EOMI, PERRLA. ABSENT: scleral icterus Ear exam: PRESENT: normal external ear exam Mouth exam: PRESENT: moist, tongue midline Neck exam: ABSENT: carotid bruit, JVD, lymphadenopathy, thyromegaly Respiratory exam: PRESENT: clear but diminished to auscultation francisco javier. ABSENT: rales, rhonchi, wheezes Cardiovascular exam: PRESENT: RRR. ABSENT: diastolic murmur, rubs, systolic murmur Pulses: PRESENT: normal dorsalis pedis pul Vascular exam: PRESENT: normal capillary refill GI/Abdominal exam: PRESENT: normal bowel sounds, soft. ABSENT: distended, guarding, mass, organolmegaly, rebound, tenderness Rectal exam: PRESENT: deferred Extremities exam: PRESENT: full ROM. ABSENT: calf tenderness, clubbing, pedal edema Neurological exam: PRESENT: alert, awake, oriented to person, oriented to place , oriented to time, oriented to situation, CN II-XII grossly intact. ABSENT: motor sensory deficit Psychiatric exam: PRESENT: appropriate affect, normal mood. ABSENT: homicidal ideation, suicidal ideation Skin exam: PRESENT: dry, intact, warm. ABSENT: cyanosis, rash Results Laboratory Results: 09/06/16 06:10 09/06/16 06:10 Impressions: Chest X-Ray 09/05/16 03:01 IMPRESSION: MILD BASILAR ATELECTASIS/ SCARRING. Transfer Plan - Time Spent with Patient Time spent with patient: Greater than 30 Minutes Qualifiers PATEINT BEING DISCHARGED WITH ANY OF THE FOLLOWING DIAGNOSIS?: No Plan Discharge Plan: The patient is to followup with their primary care provider within one week for hospital followup regarding aspiration pneumonia. Time Spent: Greater than 30 Minutes
[2016-09-11] MEDS: ASPIRIN 81 MG TABLET, CHEWABLE PO SCH (10:21)
[2016-09-11] MEDS: LEVOFLOXACIN 750 MG TABLET PO SCH (10:21)
[2016-09-11] MEDS: TAMSULOSIN HCL 0.4 MG CAP.SR.24H PO SCH (10:22)
[2016-09-11] MEDS: MULTIVITAMIN TABLET PO SCH (10:22)
[2016-09-11] MEDS: MECLIZINE HCL 25 MG TABLET PO SCH ×2 (10:22→17:35)
--- NOTE | 2016-09-11 10:53 | TRANSFER SUMMARY E ---
Transfer Summary NAME: HEIDY SHEPPARD : 1925 AGE: 89Y ADMITTED: 09/05/2016 TRANSFERRED: 09/11/2016 CODE STATUS: DO NOT RESUSCITATE/DO NOT INTUBATE WITH PORTABLE DNR. PRIMARY CARE PROVIDER: *------* with the [facility]. DISCHARGE DIAGNOSES: 1. Aspiration pneumonia. 2. Systemic inflammatory response syndrome. 3. Chronic obstructive pulmonary disease. 4. [id number] hypoxemic respiratory failure. 5. Acute encephalopathy, which is resolved. 6. Atrial fibrillation. 7. Benign prostatic hyperplasia. 8. Constipation. 9. Severe hard of hearing. 10. Dysphagia. 11. Opiate dependency. DISCHARGE MEDICATIONS: 1. Albuterol HFA 2 puff inhalation q.4 h. p.r.n. 2. Aspirin 81 mg p.o. daily. 3. Valium 2 mg p.o. q.8 h. p.r.n. 4. Valium 2 mg p.o. at hour of sleep. 5. Avalon 5/325 one tablet p.o. q.4 h. p.r.n. 6. Levaquin 750 mg p.o. daily, 8 tablets with 0 refills. 7. Antivert 25 mg p.o. b.i.d. 8. Multivitamin 1 tablet p.o. daily. 9. Flomax 0.4 mg p.o. daily. 10. Spiriva 1 capsule inhalation daily. DIET: Cardiac mechanical, ground meats, with nectar thickened liquids. ACTIVITY: As per rehab standards. HISTORY OF PRESENT ILLNESS: The patient is an 89-year-old male with a past medical history of home O2 dependent COPD and recurrent aspiration pneumonia. The patient presented to the emergency department with a chief complaint of shortness of breath and febrile state. The patient was a poor historian and was unable to provide history, therefore, history was obtained through medical records. While in the emergency department, the patient was found to be febrile with rhonchi and productive cough. The patient was started on empirical antibiotics and was referred to the hospitalists for admission and management. HOSPITAL COURSE: The patient was admitted to continuous telemetry unit. The patient had previous aspiration pneumonia and, therefore, was seen and evaluated by speech therapy and recommendations were made to continue chopped meats and thickened liquids. The patient communicated through a notepad, given that he is severely hard of hearing. It is also to be noted that the patient has obsessive compulsive disorder and worries constantly about the timing of his medications. The patient was placed on antibiotics, as well as nebulizers, expectorants, supplemental O2, incentive spirometry, and flutter valve. The patient was unable to present a sputum culture, however, the patient's symptoms improved tremendously and the patient is back on his home O2 setting and overall his symptoms have resolved. DIAGNOSTIC/LAB VALUES: Hematology obtained on 09/06/2016: WBC 7.4, hemoglobin 13.2, hematocrit 30.0, platelet count 154,000. Coagulation obtained on 09/05/2016: PT is 13.8. INR is 1.03. ABG obtained on 09/05/2016: pH of 7.43, pCO2 is 41.8, bicarb is 26.9. Chemistry obtained on 09/06/2016: Sodium 136, potassium 4.3, chloride 99, carbon dioxide 30, BUN 22, creatinine 0.88, glucose 98, lactic acid 1.1, calcium 9.5, bilirubin 1.4, AST 23, ALT 39, alkaline phosphorus 48, CK 61, CK-MB 0.69, troponin 0.012, total protein 5.7, albumin 3.5. Urinalysis obtained on 09/05/2016: Color yellow, appearance slightly cloudy, pH of 6.0, specific gravity is 1.020, protein 30, glucose negative, ketones trace, occult blood negative, nitrate negative, bilirubin negative, urobilinogen negative, leukocyte esterase negative, wbc 0, rbc's 2, casts 1, mucous rare, ascorbic acid 40. Serology obtained on 09/05/2016: Influenza A and B are negative. MICROBIOLOGY: Blood cultures obtained on 09/05/2016: One set reveals no growth. One blood culture bottle of one set did reveal Staph epi, which was felt to be contaminant. Urine culture obtained on 09/05/2016: Unremarkable. Chest x-ray obtained on 09/05/2016 reveals mild basilar atelectasis. PHYSICAL EXAMINATION: GENERAL: On examination, the patient is a well-developed, reasonably nourished, extremely hard of hearing to the point of deafness, 89-year-old male who is awake and alert. He is oriented to person, place, time, and situation. He is verbal, conversational, somewhat obsessive. Does not appear to be in any acute distress. VITAL SIGNS FOLLOWS: Temperature is 97.7, pulse 88, respirations 18, blood pressure is 117/51. Oxygen saturation is 97% on 2 liters nasal cannula. SKIN: Warm and dry. No rashes, not diaphoretic. HEENT: Pupils equal, round and reactive to light and accommodation. Conjunctivae are pink. NECK: No JVP. CARDIOVASCULAR: Heart is regular with no murmur or rub. CHEST: Diminished, symmetrical, unlabored. ABDOMEN: Soft, nontender, nondistended. BACK: No CVA tenderness or sacral edema. EXTREMITIES: No clubbing, cyanosis, edema. PSYCHIATRIC: Anxious at times. TRANSFER PLAN: The patient will need to follow up with a primary care provider within 1 week for hospital followup of pneumonia. Time spent on this transfer, including assessment, plan, physical examination, patient education, and resource alignment, 40 minutes. DICTATING PHYSICIAN: KIM ELLIS NP [id number] [facility]#: [id number] ID: [id number] JOB#: [id number] ACCT: [id number] cc:KIM ELLIS NP >
[2016-09-11] MEDS: TIOTROPIUM BROMIDE DPI 5 CAP/KIT (18 MCG/CAP) IH SCH (11:14)
[2016-09-11] MEDS ORDERED: NA PHOS,M-B/NA PHOS,DI-BA (ADULT) 133 ML ENEMA PR ONE (13:15)
[2016-09-11] MEDS: ACYCLOVIR 5% OINTMENT 15 GM TP SCH ×2 (14:13→17:36)
[2016-09-11 17:41] VITALS: BP 133/62
== END 2016-09-11 19:53 | DRG 177 ==
LOC: ER 02:48 → EH 05:50 → OBSVTOIN 06:22 → 4W 08:52
PROVIDERS: ADMIT Internal Medicine; ATTEND Internal Medicine
DX: J69.0 Pneumonitis due to inhalation of food and vomit (principal); G93.40 Encephalopathy, unspecified; J44.1 Chronic obstructive pulmonary disease with (acute) exacerbation; Z66 Do not resuscitate; J96.11 Chronic respiratory failure with hypoxia; R65.10 Systemic inflammatory response syndrome (SIRS) of non-infectious origin without acute organ dysfunction; F11.20 Opioid dependence, uncomplicated; I48.0 Paroxysmal atrial fibrillation; I10 Essential (primary) hypertension; G89.29 Other chronic pain; F41.9 Anxiety disorder, unspecified; N40.0 Benign prostatic hyperplasia without lower urinary tract symptoms; R13.13 Dysphagia, pharyngeal phase; K59.01 Slow transit constipation; F03.90 Unspecified dementia, unspecified severity, without behavioral disturbance, psychotic disturbance, mood disturbance, and anxiety; H91.93 Unspecified hearing loss, bilateral; Z99.81 Dependence on supplemental oxygen; Z87.891 Personal history of nicotine dependence
CPT/HCPCS: 36415; 71010; 80048; 80053; 81001; 82550; 82553; 82803; 83605; 84484; 85025; 85610; 87040; 87077; 87086; 87186; 87804; 93005; 93010; 94640; 94799; 99285; J1644; J1956; J3490; J7620